=== PATIENT | female | born 1995 ===

== ENCOUNTER → 2020-08-20 | Outpatient (CLI) | payer OTHER ==
--- NOTE | 2020-08-20 15:12 | US ---
EXAMINATION TYPE: US thyroid st tissue head/neck DATE OF EXAM: 08/20/2020 COMPARISON: NONE CLINICAL HISTORY: E04.2 GOITER. GLAND SIZE: Right Lobe: 5.6 x 1.3 x 1.7 cm Overall Parenchyma: heterogenous Left Lobe: 5.8 x 1.4 x 1.4 cm Overall Parenchyma: heterogeneous Isthmus Thickness: 0.3 cm NODULES RIGHT: # of nodules measured on right: 0 LEFT: # of nodules measured on left: 0 ISTHMUS: # of nodules measured in the isthmus: 0 Bilateral neck scanned, no evidence of lymphadenopathy. Heterogeneous echotexture without specific nodule noted. Area posterior to right lobe appears as nodu le in transverse plane but elongates in sagittal plane. IMPRESSION: 1. Normal thyroid ultrasound. 2017 ACR TI-RADS LEVEL: TR-RADS 1 - BENIGN: No FNA *Highest TI-RADS level nodule reported
== END ==
LOC: RADUSWWP 13:43
PROVIDERS: ATTEND Family Medicine
DX: E04.1 Nontoxic single thyroid nodule (principal)
CPT/HCPCS: 76536

== ENCOUNTER → 2024-03-29 | Outpatient (CLI) | payer BC ==
--- NOTE | 2024-03-30 12:18 | FL ---
EXAMINATION TYPE: FL hysterosalpingography DATE OF EXAM: 03/29/2024 CLINICAL HISTORY: Infertility. History of ectopic with at least a portion of left fallopian tube removed in 2022. TECHNIQUE: Fluoroscopy. Approximately 6 cc of Isovue-[id number] was used for procedure. COMPARISON: None. FINDINGS: Fluoroscopic guidance was provided during fluoroscopic assisted hysterosalpingogram proced ure performed by myself. A total of 88 seconds of fluoroscopic time was utilized during the procedur e and 18 spot images are acquired. Total DAP = [id number]. Preprocedural patient partner image shows no suspicious pelvic abnormality. Incidental sacralized left L5 segme nt. Procedure was explained to patient including benefits, alternatives, and risks. Informed consent was obtained. Speculum was introduced utilizing sterile technique. Betadine was used to cleanse the cervi riccardo os. Catheter is inserted into the uterus through the cervix. Balloon is inflated. Contrast was injected. There is partial filling of the left-sided fallopian tube initially which is i rregular consistent with stricturing having also areas of mild and moderate dilatation. There is abru pt cut off without spillage of contrast. There is some delayed but eventual filling of the right fall opian tube which is more normal caliber graft mildly dilated distally but having a tortuous course. T here is eventual free spill of contrast from the right fallopian tube into the peritoneal cavity. Opa cified portion of the central endometrial canal appears unremarkable. At this point procedure was terminated. Balloon was deflated and catheter is withdrawn. Speculum was removed. Patient tolerated procedure well without any immediate complication and was discharged home in stable and satisfactory condition. IMPRESSION: As Above. Eventual patency of the right fallopian tube is documented. [facility], , 03/30/2024 12:16 PM
== END | disposition home or self-care (01) ==
LOC: RADFLMAIN 14:31
PROVIDERS: ATTEND Obstetrics & Gynecology Reproductive Endocrinology
DX: E28.2 Polycystic ovarian syndrome (principal); N92.6 Irregular menstruation, unspecified; N97.1 Female infertility of tubal origin
CPT/HCPCS: 58340; 74740